=== PATIENT | female | born 1955 | race Caucasian/White ===

== ENCOUNTER → 2017-09-30 | Outpatient (CLI) | payer BC ==
[~2017-09-30] MED LIST: CALC-393 PO; IBUP-1050 PO; LEVO75TA PO; MULT-506 PO
--- NOTE | 2017-09-30 10:52 | DIAGNOSTIC IMAGING REPORT ---
CHEST 2 VIEWS ROUTINE HISTORY: Fever. Cough. COMPARISON: None. FINDINGS: No pleural effusions. No pneumothorax. The right lung is clear. Question of a small patchy airspace opacity within the left upper lobe. Only seen on the frontal view there is a possible 2 cm nodular opacity adjacent to the cardiac apex. The heart is normal in size. IMPRESSION: 1. There appears to be a small hazy airspace opacity within the left upper lobe. This may represent a developing pneumonia. 2. Possible 2 cm nodular density within the left lung base only seen on the frontal view. This could represent a nipple shadow. Follow-up nonemergent chest x-ray with nipple markers and shallow obliques is recommended for further evaluation. The findings were called/faxed to the referring physician's office Electronically signed by: Yogesh Aiken M.D. 09/30/2017 10:50 AM Dictated Date/Time: 09/30/2017 10:48 AM
== END | disposition home or self-care (01) ==
LOC: C.RADBC 10:09
PROVIDERS: ATTEND Internal Medicine
DX: N02.8 Recurrent and persistent hematuria with other morphologic changes (principal); R91.8 Other nonspecific abnormal finding of lung field

== ENCOUNTER → 2017-10-16 | Outpatient (CLI) | payer BC ==
--- NOTE | 2017-10-16 17:01 | DIAGNOSTIC IMAGING REPORT ---
CHEST 2 VIEWS ROUTINE CLINICAL HISTORY: J18.9 pneumonia. Follow-up study. COMPARISON STUDY: 09/30/2017 FINDINGS: The cardiac and mediastinal contours remain stable. There is a linear left upper lung zone opacity, likely representing subsegmental atelectasis. There is no failure. There are no pleural effusions. IMPRESSION: Linear left upper lung zone opacity, likely representing subsegmental atelectasis. Electronically signed by: Krzysztof Dunn M.D. 10/16/2017 4:59 PM Dictated Date/Time: 10/16/2017 4:59 PM
== END | disposition home or self-care (01) ==
LOC: C.RAD1850 16:49
PROVIDERS: ATTEND Internal Medicine
DX: R91.8 Other nonspecific abnormal finding of lung field (principal); J18.9 Pneumonia, unspecified organism

== ENCOUNTER → 2018-01-09 | Outpatient (CLI) | payer BC | END | disposition home or self-care (01) | LOC: C.PAPS 09:56 | PROVIDERS: ATTEND Obstetrics & Gynecology | DX: Z01.419 Encounter for gynecological examination (general) (routine) without abnormal findings (principal) ==

== ENCOUNTER → 2018-01-23 | Outpatient (CLI) | payer BC ==
[2018-01-23 17:50] LABS: ALBUMIN 3.6 gm/dl (3.4-5.0); ALT/SGPT 39 U/L (12-78); AST/SGOT 22 U/L (15-37); BLOOD UREA NITROGEN 22 mg/dl (7-18); CALCIUM 8.3 mg/dl (8.5-10.1); CARBON DIOXIDE 26 mmol/L (21-32); CREATININE 0.61 mg/dl (0.60-1.20); GLUCOSE 126 mg/dl (70-99); POTASSIUM 3.9 mmol/L (3.5-5.1); SODIUM 138 mmol/L (136-145)
[2018-01-23 18:01] LABS: ALKALINE PHOSPHATASE 99 U/L (45-117); TOTAL PROTEIN 7.3 gm/dl (6.4-8.2)
== END | disposition home or self-care (01) ==
LOC: C.LAB1850 16:14
PROVIDERS: ATTEND Nurse Practitioner Adult Health
DX: E03.9 Hypothyroidism, unspecified (principal); R73.03 Prediabetes; E78.1 Pure hyperglyceridemia

== ENCOUNTER → 2018-02-13 | Outpatient (CLI) | payer BC ==
--- NOTE | 2018-02-13 12:07 | DIAGNOSTIC IMAGING REPORT ---
TWO VIEW CHEST CLINICAL HISTORY: Follow-up abnormal chest x-ray. FINDINGS: PA and lateral chest radiographs are compared to study dated 10/16/2017. The cardiomediastinal silhouette is unremarkable. There is mild chronic elevation of the right hemidiaphragm. Platelike atelectasis in the left upper lobe has resolved from previous. No airspace consolidation or pleural effusion is identified. There is no pneumothorax. The skeletal structures are osteopenic. The bony thorax appears intact. IMPRESSION: 1. No active disease in the chest. 2. Platelike atelectasis in the left upper lobe has resolved from 10/16/2017. Electronically signed by: Yony Streeter M.D. 02/13/2018 12:05 PM Dictated Date/Time: 02/13/2018 12:04 PM
[2018-02-13 14:44] LABS: ALBUMIN 3.7 gm/dl (3.4-5.0); ALT/SGPT 36 U/L (12-78); AST/SGOT 20 U/L (15-37); BLOOD UREA NITROGEN 20 mg/dl (7-18); CALCIUM 8.6 mg/dl (8.5-10.1); CARBON DIOXIDE 26 mmol/L (21-32); CREATININE 0.63 mg/dl (0.60-1.20); GLUCOSE 92 mg/dl (70-99); POTASSIUM 4.1 mmol/L (3.5-5.1); SODIUM 140 mmol/L (136-145)
[2018-02-13 14:55] LABS: ALKALINE PHOSPHATASE 87 U/L (45-117); CHOLESTEROL 147 mg/dl (0-200); LDL CHOLESTEROL CALCULATED 74 mg/dl; TOTAL PROTEIN 7.3 gm/dl (6.4-8.2)
[2018-02-14 05:58] LABS: HEMOGLOBIN A1C 6.1 % (4.5-5.6)
== END | disposition home or self-care (01) ==
LOC: C.RAD1850 11:32
PROVIDERS: ATTEND Internal Medicine
DX: R93.8 Abnormal findings on diagnostic imaging of other specified body structures (principal); E03.9 Hypothyroidism, unspecified; R73.9 Hyperglycemia, unspecified; E78.1 Pure hyperglyceridemia; Z11.59 Encounter for screening for other viral diseases

== ENCOUNTER → 2018-02-15 | Outpatient (CLI) | payer BC ==
--- NOTE | 2018-02-15 16:32 | DIAGNOSTIC IMAGING REPORT ---
L EXTREMITY NONVASCULAR LIMITED CLINICAL HISTORY: 62 years-old Female presenting with D17.9 Lipoma left arm. TECHNIQUE: Real-time grayscale Doppler ultrasound imaging of the left upper arm was performed for a focused evaluation at the site of clinical concern. Color Doppler ultrasound imaging was also performed. COMPARISON: None. FINDINGS: At the site of clinical interest, an ovoid 2.5 x 2.9 x 0.9 cm lesion is noted which is isoechoic to surrounding subcutaneous fat or fascial to the musculature. No hyperemia. No associated fluid. IMPRESSION: 1. Findings consistent with superficial lipoma. Electronically signed by: Gurpreet Urbina M.D. 02/15/2018 4:31 PM Dictated Date/Time: 02/15/2018 4:29 PM
== END | disposition home or self-care (01) ==
LOC: C.ULTR 15:25
PROVIDERS: ATTEND Internal Medicine
DX: D17.9 Benign lipomatous neoplasm, unspecified (principal)